=== PATIENT | male | born 1960 | race African-American/Black ===

== ENCOUNTER 2019-11-08 08:20 | Inpatient (IN) ==
[2019-11-08 09:43] LABS: Alanine Aminotransferase 53 U/L (16-61); Alkaline Phosphatase 70 U/L (45-117); Aspartate Amino Transferase 38 U/L (0-37); Bilirubin,Total < 0.39 MG/DL (0.2-1.0); Blood Urea Nitrogen 25 MG/DL (7-18); Calcium 9.3 MG/DL (8.5-10.1); Estimated Glom Filtration Rate 59 ML/MIN; Glucose 95 MG/DL (74-106); Osmolality,Calculated 273.1 MOS/KG (273-304); Total Protein 8.6 G/DL (6.4-8.3)
[2019-11-08] MEDS ORDERED: PIPERACILLIN/TAZOBACTAM 3,375 MG in SODIUM CHLORIDE 0.9% 100 ML IV STA (09:56)
[2019-11-08] MEDS ORDERED: MORPHINE 4 MG/1 ML VIAL IV PRN (10:12)
[2019-11-08] MEDS ORDERED: LACTULOSE 20 GM/30 ML UDCUP PO PRN (10:12)
[2019-11-08] MEDS ORDERED: ONDANSETRON 4 MG/2 ML VIAL IV PRN (10:12)
[2019-11-08] MEDS ORDERED: BISACODYL 5 MG TABLET PO PRN (10:12)
[2019-11-08] MEDS ORDERED: ALUMINUM/MAGNES/SIMETH MAX STR 30 ML UDCUP PO PRN (10:12)
[2019-11-08] MEDS ORDERED: DEXTROSE 50% 25 GM/50 ML VIAL IV PRN (10:14)
[2019-11-08] MEDS ORDERED: GLUCAGON 1 MG VIAL IM PRN (10:14)
[2019-11-08] MEDS ORDERED: LACTATED RINGERS 1,000 ML IV SCH (10:30)
[2019-11-08] MEDS ORDERED: CLINDAMYCIN INJ 900 MG in PREMIX 1 EACH IV ONE (10:41)
[2019-11-08] MEDS ORDERED: hydrALAZINE 20 MG/1 ML VIAL IV PRN (11:13)
[2019-11-08] MEDS ORDERED: hydrALAZINE 20 MG/1 ML VIAL IM STA (11:16)
[2019-11-08] MEDS ORDERED: PIPERACILLIN/TAZOBACTAM 2,250 MG in SODIUM CHLORIDE 0.9% 100 ML IV SCH (11:30)
[2019-11-08 11:35] LABS: Basophils % 0.4 % (0.0-0.8); Eosinophils # 0.1 10*3/uL (0.0-0.87); Eosinophils % 1.7 % (0.00-10.9); Immature Granulocytes % 0.1 %; Immature Granulocytes Absolute 0.01 #; Lymphocytes # 1.3 10*3/uL (1.4-4.0); Lymphocytes % 18.5 % (21.2-54.2); Mean Corpuscular HGB Conc 33.3 GM/DL (32-36); Mean Corpuscular Volume 89.7 FL (87-102); Mean Platelet Volume 10.1 FL (9.6-12.0); Monocytes % 10.4 % (1.7-12.7); Neutrophils % 68.9 % (38.7-73.9); Platelet Count 149 T/CUMM (130-400); Red Blood Count 4.68 MC/CUMM (3.8-5.5); Red Cell Distribution Width 13.7 % (9.3-17.3); White Blood Count 6.9 T/CUMM (4-12)
[2019-11-08 11:40] LABS: Risk Ratio 4.21; VLDL CHOLESTEROL 32.6 MG/DL
[2019-11-08] MEDS ORDERED: CLINDAMYCIN INJ 50 ML IV ONE (11:52)
[2019-11-08] MEDS ORDERED: BUPIVACAINE 0.5% 50 ML VIAL ONE (12:17)
[2019-11-08] MEDS ORDERED: MIDAZOLAM 2 MG/2 ML VIAL ONE (12:46)
[2019-11-08] MEDS ORDERED: propofoL 200 MG/20 ML VIAL IV ONE (12:46)
[2019-11-08] MEDS ORDERED: SODIUM CHLORIDE 0.9% 1,000 ML IV ONE (12:46)
[2019-11-08] MEDS ORDERED: LIDOCAINE 2% 5 ML VIAL ONE (12:46)
[2019-11-08] MEDS ORDERED: fentaNYL 100 MCG/2 ML VIAL ONE (12:46)
[2019-11-08] MEDS: VANCOMYCIN INJ 1,250 MG in SODIUM CHLORIDE 0.9% 250 ML IV SCH (15:52)
[2019-11-08] MEDS: INSULIN REGULAR 100 UNIT/ML SUBCUT SCH ×3 (15:59→21:29)
[2019-11-08] MEDS: ENOXAPARIN 40 MG/0.4 ML SYRINGE SUBCUT SCH (15:59)
[2019-11-08] MEDS: PIPERACILLIN/TAZOBACTAM 3,375 MG in SODIUM CHLORIDE 0.9% 100 ML IV SCH (17:34)
[2019-11-08] MEDS ORDERED: ATORVASTATIN 20 MG TABLET PO SCH (21:00)
[2019-11-08] MEDS ORDERED: INSULIN GLARGINE 100 UNIT/ML SUBCUT SCH (21:00)
[2019-11-08] MEDS: amLODIPine 5 MG TABLET PO SCH (21:31)
[2019-11-09] MEDS: PIPERACILLIN/TAZOBACTAM 3,375 MG in SODIUM CHLORIDE 0.9% 100 ML IV SCH ×2 (01:34→11:56)
[2019-11-09 05:45] LABS: Basophils % 0.6 % (0.0-0.8); Eosinophils # 0.1 10*3/uL (0.0-0.87); Eosinophils % 2.4 % (0.00-10.9); Hematocrit 37.7 VOL% (42.0-52.0); Hemoglobin 12.4 GM/DL (14.0-18.0); Immature Granulocytes % 0.4 %; Immature Granulocytes Absolute 0.02 #; Lymphocytes # 1.2 10*3/uL (1.4-4.0); Lymphocytes % 22.5 % (21.2-54.2); Mean Corpuscular HGB Conc 32.9 GM/DL (32-36); Mean Corpuscular Volume 89.5 FL (87-102); Mean Platelet Volume 10.3 FL (9.6-12.0); Monocytes % 11.4 % (1.7-12.7); Neutrophils % 62.7 % (38.7-73.9); Platelet Count 143 T/CUMM (130-400); Red Blood Count 4.21 MC/CUMM (3.8-5.5); White Blood Count 5.3 T/CUMM (4-12)
[2019-11-09 06:09] LABS: Calcium 8.6 MG/DL (8.5-10.1); Osmolality,Calculated 278.8 MOS/KG (273-304)
[2019-11-09] MEDS ORDERED: glipiZIDE 10 MG TABLET PO SCH (08:00)
[2019-11-09] MEDS ORDERED: CYANOCOBALAMIN 500 MCG TABLET PO SCH (09:00)
[2019-11-09] MEDS ORDERED: CHOLECALCIFEROL 1,000 UNIT TABLET PO SCH (09:00)
[2019-11-09] MEDS ORDERED: sitaGLIPtin 100 MG TABLET PO SCH (09:00)
[2019-11-09] MEDS ORDERED: PANTOPRAZOLE 40 MG TABLET PO SCH (09:00)
[2019-11-09] MEDS: amLODIPine 5 MG TABLET PO SCH (09:19)
[2019-11-09] MEDS: VANCOMYCIN INJ 1,250 MG in SODIUM CHLORIDE 0.9% 250 ML IV SCH (09:25)
[2019-11-09] MEDS: INSULIN REGULAR 100 UNIT/ML SUBCUT SCH ×2 (10:27→11:58)
[2019-11-09 11:38] VITALS: BP 142/72
[2019-11-09] MEDS: ENOXAPARIN 40 MG/0.4 ML SYRINGE SUBCUT SCH (11:57)
== END 2019-11-09 13:10 | disposition home health service (06) | DRG 623 ==
LOC: N.ED 08:20 → N.EDINP 10:12 → N.2E 11:38
PROVIDERS: ADMIT Family Medicine; ATTEND Family Medicine